=== PATIENT | male | born 1990 | race American Indian/Alaskan Native ===

== ENCOUNTER 2018-07-11 15:55 | Emergency (ER) | payer BC, OTHER ==
--- NOTE | 2018-07-11 17:08 | Emergency Department Report ---
Blank Doc - Documentation Documentation: 28 y o male presents with mid to left throbbing,aching pain 6/10 intensity, non radiating x 2 weeks cc of bilateral arm pain shooting, wosre with move,ent hx of Asthma EXAM:CTAB tenderness to palp of left chest, RRR PLAN: CXR reevaluate fast track
--- NOTE | 2018-07-11 18:21 | Emergency Department Report ---
ED Chest Pain HPI - General Chief Complaint: Chest Pain Stated Complaint: CHEST PAIN Time Seen by Provider: 07/11/18 17:02 Source: patient Mode of arrival: Ambulatory Limitations: No Limitations - History of Present Illness Initial Comments: 28-year-old male, history of asthma, presents to the ED complaining of chest pain. Pain is left-sided, intermittent for the last 2 weeks. States when the pain is present, it only lasts for a few seconds and then goes away on its own. The patient states sometimes massaging the left side of his chest helps to relieve the pain. The patient denies nausea, vomiting, diaphoresis. Denies associated leg pain or swelling. MD Complaint: chest pain -: week(s) (2) Onset: during rest Pain Location: left chest Pain Radiation: LUE Severity: mild Severity scale (0 -10): 6 Quality: sharp Consistency: intermittent, now resolved Improves With: other (massaging chest wall) Worsens With: nothing re: dyspnea. denies: nausea, vomting, diaphoresis Other Symptoms: denies: leg swelling - Related Data Previous Rx's Medication Instructions Recorded Last Taken Type Ibuprofen [Motrin 600 MG tab] 600 mg PO Q8H PRN #20 tablet 07/05/14 Unknown Rx ALBUTEROL Inhaler (OR & NICU) 2 puff IH PRN PRN #1 inha 12/31/14 Unknown Rx [ProAir HFA Inhaler] Loratadine [Claritin] 10 mg PO DAILY #30 tablet 12/31/14 Unknown Rx predniSONE [Deltasone] 40 mg PO QDAY #10 tab 12/31/14 Unknown Rx Cyclobenzaprine HCl [Flexeril 5 MG 5 mg PO TID #30 tab 02/14/15 Unknown Rx TAB] Ibuprofen [Motrin] 800 mg PO Q8HR #30 tablet 02/14/15 Unknown Rx traMADol [Ultram 50 MG tab] 50 mg PO Q6HR PRN #20 tablet 02/14/15 Unknown Rx Methocarbamol [Robaxin-750] 750 mg PO Q6HR PRN #20 tablet 07/11/18 Unknown Rx Naproxen [Naprosyn] 500 mg PO BID #20 tablet 07/11/18 Unknown Rx Allergies Allergy/AdvReac Type Severity Reaction Status Date / Time No Known Allergies Allergy Verified 07/11/18 17:02 Heart Score - HEART Score History: Slightly suspicious EKG: Normal Age: < 45 Risk factors: No known risk factors Troponin: < normal limit HEART Score: 0 - Critical Actions Critical Actions: 0-3 pts:0.9-1.7%risk of adverse cardiac event.Candidate for discharge ED Review of Systems ROS: Stated complaint: CHEST PAIN Other details as noted in HPI Comment: All other systems reviewed and negative Constitutional: denies: chills, fever Respiratory: shortness of breath Cardiovascular: chest pain Musculoskeletal: other (denies leg pain and swelling) ED Past Medical Hx - Past Medical History Hx GERD: Yes Hx Asthma: Yes - Surgical History Past Surgical History?: Yes Additional Surgical History: TONSILLECTOMY - Social History Smoking Status: Never Smoker Substance Use Type: Alcohol - Medications Home Medications: Home Medications Medication Instructions Recorded Confirmed Last Taken Type Ibuprofen [Motrin 600 MG tab] 600 mg PO Q8H PRN #20 tablet 07/05/14 Unknown Rx ALBUTEROL Inhaler (OR & NICU) 2 puff IH PRN PRN #1 inha 12/31/14 Unknown Rx [ProAir HFA Inhaler] Loratadine [Claritin] 10 mg PO DAILY #30 tablet 12/31/14 Unknown Rx predniSONE [Deltasone] 40 mg PO QDAY #10 tab 12/31/14 Unknown Rx Cyclobenzaprine HCl [Flexeril 5 MG 5 mg PO TID #30 tab 02/14/15 Unknown Rx TAB] Ibuprofen [Motrin] 800 mg PO Q8HR #30 tablet 02/14/15 Unknown Rx traMADol [Ultram 50 MG tab] 50 mg PO Q6HR PRN #20 tablet 02/14/15 Unknown Rx Methocarbamol [Robaxin-750] 750 mg PO Q6HR PRN #20 tablet 07/11/18 Unknown Rx Naproxen [Naprosyn] 500 mg PO BID #20 tablet 07/11/18 Unknown Rx ED Physical Exam - General Limitations: No Limitations General appearance: alert, in no apparent distress - Head Head exam: Present: atraumatic, normocephalic - Eye Eye exam: Present: normal appearance - ENT ENT exam: Present: mucous membranes moist - Neck Neck exam: Present: normal inspection - Respiratory Respiratory exam: Present: normal lung sounds bilaterally. Absent: respiratory distress - Cardiovascular Cardiovascular Exam: Present: regular rate, normal rhythm - GI/Abdominal GI/Abdominal exam: Present: soft. Absent: distended - Extremities Exam Extremities exam: Absent: pedal edema, calf tenderness - Neurological Exam Neurological exam: Present: alert, oriented X3 - Psychiatric Psychiatric exam: Present: normal affect, normal mood - Skin Skin exam: Present: warm, dry, intact, normal color ED Course Vital Signs 07/11/18 07/11/18 07/11/18 16:07 17:46 18:16 Temperature 98.0 F Pulse Rate 75 63 68 Respiratory 16 11 L 10 L Rate Blood Pressure 118/73 112/74 Blood Pressure 130/82 [Right] O2 Sat by Pulse 98 99 98 Oximetry 07/11/18 18:26 Temperature Pulse Rate Respiratory 18 Rate Blood Pressure Blood Pressure [Right] O2 Sat by Pulse 98 Oximetry ED Medical Decision Making - Lab Data Result diagrams: 07/11/18 18:13 07/11/18 18:13 - EKG Data -: EKG Interpreted by [facility] EKG shows normal: sinus rhythm, axis, intervals, QRS complexes, ST-T waves Rate: normal - EKG Data Interpretation: no acute changes - Radiology Data Radiology results: report reviewed, image reviewed - Medical Decision Making 28-year-old male with intermittent chest pain 2 weeks, intermittent, lasting only a few seconds at a time. Occurs at rest. EKG, troponin, d-dimer are all negative. Chest x-ray normal. Possible chest wall pain. Prescription for Naprosyn and Robaxin. Advised PCP follow-up. Return precautions given. - Differential Diagnosis chest wall pain, ACS, PE Critical care attestation.: If time is entered above; I have spent that time in minutes in the direct care of this critically ill patient, excluding procedure time. ED Disposition Clinical Impression: Chest wall pain Disposition: DC-01 TO HOME OR SELFCARE Is pt being admited?: No Condition: Stable Instructions: Chest Pain (ED), Costochondritis (ED) Prescriptions: Methocarbamol [Robaxin-750] 750 mg PO Q6HR PRN #20 tablet PRN Reason: Spasms Naproxen [Naprosyn] 500 mg PO BID #20 tablet Referrals: PRIMARY CARE, [Referring] - 3-5 Days Time of Disposition: 19:13
[2018-07-11 18:25] LABS: Basophils % (Auto) 0.5 % (0.0-1.8); Eosinophils # (Auto) 0.5 K/mm3 (0.0-0.4); Eosinophils % (Auto) 5.1 % (0.0-4.3); Hematocrit 47.5 % (35.5-45.6); Hemoglobin 15.7 gm/dl (11.8-15.2); Lymphocytes # (Auto) 2.4 K/mm3 (1.2-5.4); Mean Corpuscular HGB Conc 33 % (32-34); Mean Corpuscular Volume 91 fl (84-94); Monocytes % (Auto) 10.9 % (0.0-7.3); Platelet Count 315 K/mm3 (140-440); Red Blood Count 5.21 M/mm3 (3.65-5.03); Red Cell Distribution Width 13.4 % (13.2-15.2)
[2018-07-11 18:38] LABS: Partial Thromboplastin Time 29.2 Sec. (24.2-36.6)
[2018-07-11 18:48] LABS: BUN/Creatinine Ratio 9; Blood Urea Nitrogen 8 mg/dL (9-20); Hemolysis Index 11
--- NOTE | 2018-07-11 19:07 | XRay Report ---
FINAL REPORT PROCEDURE: Chest. TECHNIQUE: Portable AP view. HISTORY: Chest pain. COMPARISON: No prior studies are available for comparison. FINDINGS: The heart and mediastinum appear normal. The lungs are clear and well expanded. There are no pleural effusions. The soft tissues and regional skeleton are unremarkable. IMPRESSION: Negative portable chest.
[2018-07-11 19:30] VITALS: BP 118/73
== END 2018-07-11 19:34 | disposition home or self-care (01) ==
LOC: ED 15:55
DX: R07.89 Other chest pain (principal); K21.9 Gastro-esophageal reflux disease without esophagitis; J45.909 Unspecified asthma, uncomplicated
CPT/HCPCS: 36415; 71045; 80048; 84484; 85025; 85379; 85610; 85730; 93005; 93010

== ENCOUNTER 2019-04-27 22:35 | Emergency (ER) | payer OTHER ==
--- NOTE | 2019-04-27 23:19 | XRay Report ---
CHEST 1 VIEW, 04/27/2019 11:00 PM CLINICAL INFORMATION/INDICATION: Chest pain for several months COMPARISON: Chest radiograph, 07/11/2018 FINDINGS: SUPPORT DEVICES: None. HEART: Cardiac silhouette is normal in size LUNGS/PLEURA: The lungs are well expanded and appear clear ADDITIONAL FINDINGS: No additional acute findings. IMPRESSION: 1. No evidence of acute cardiopulmonary process. Signer Name: Arielle Alston MD Signed: 04/27/2019 11:14 PM Workstation Name: [id number]
--- NOTE | 2019-04-28 01:26 | Emergency Department Report ---
ED General Adult HPI - General Chief complaint: Chest Pain Stated complaint: CHEST PAIN Time Seen by Provider: 04/28/19 00:00 Source: patient Mode of arrival: Ambulatory Limitations: No Limitations - History of Present Illness Initial comments: 29-year-old male presents emergency department complaining of episodes of chest pains and palpitations the past 4-5 days. Symptoms occur sporadically and he maintains an reports being asymptomatic when they are present. With no palliative or provocative factors. 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 He reports no coughing, no congestion no hemoptysis or hematemesis nor hematochezia no fever, chills, sweats -: Gradual Location: chest Radiation: non-radiation Quality: burning Consistency: constant Improves with: none Worsens with: none Associated Symptoms: chest pain. denies: loss of appetite, nausea/vomiting, syncope, weakness Treatments Prior to Arrival: none - Related Data Previous Rx's Medication Instructions Recorded Last Taken Type Ibuprofen [Motrin 600 MG tab] 600 mg PO Q8H PRN #20 tablet 07/05/14 Unknown Rx ALBUTEROL Inhaler (OR & NICU) 2 puff IH PRN PRN #1 inha 12/31/14 Unknown Rx [ProAir HFA Inhaler] Loratadine [Claritin] 10 mg PO DAILY #30 tablet 12/31/14 Unknown Rx predniSONE [Deltasone] 40 mg PO QDAY #10 tab 12/31/14 Unknown Rx Cyclobenzaprine HCl [Flexeril 5 MG 5 mg PO TID #30 tab 02/14/15 Unknown Rx TAB] Ibuprofen [Motrin] 800 mg PO Q8HR #30 tablet 02/14/15 Unknown Rx traMADoL [Ultram 50 MG tab] 50 mg PO Q6HR PRN #20 tablet 02/14/15 Unknown Rx Methocarbamol [Robaxin-750] 750 mg PO Q6HR PRN #20 tablet 07/11/18 Unknown Rx Naproxen [Naprosyn] 500 mg PO BID #20 tablet 07/11/18 Unknown Rx Allergies Allergy/AdvReac Type Severity Reaction Status Date / Time No Known Allergies Allergy Verified 07/11/18 17:02 ED Review of Systems ROS: Stated complaint: CHEST PAIN Other details as noted in HPI Comment: All other systems reviewed and negative ED Past Medical Hx - Past Medical History Previous Medical History?: Yes Hx GERD: Yes Hx Asthma: Yes - Surgical History Past Surgical History?: Yes Additional Surgical History: TONSILLECTOMY - Social History Smoking Status: Never Smoker Substance Use Type: None - Medications Home Medications: Home Medications Medication Instructions Recorded Confirmed Last Taken Type Ibuprofen [Motrin 600 MG tab] 600 mg PO Q8H PRN #20 tablet 07/05/14 Unknown Rx ALBUTEROL Inhaler (OR & NICU) 2 puff IH PRN PRN #1 inha 12/31/14 Unknown Rx [ProAir HFA Inhaler] Loratadine [Claritin] 10 mg PO DAILY #30 tablet 12/31/14 Unknown Rx predniSONE [Deltasone] 40 mg PO QDAY #10 tab 12/31/14 Unknown Rx Cyclobenzaprine HCl [Flexeril 5 MG 5 mg PO TID #30 tab 02/14/15 Unknown Rx TAB] Ibuprofen [Motrin] 800 mg PO Q8HR #30 tablet 02/14/15 Unknown Rx traMADoL [Ultram 50 MG tab] 50 mg PO Q6HR PRN #20 tablet 02/14/15 Unknown Rx Methocarbamol [Robaxin-750] 750 mg PO Q6HR PRN #20 tablet 07/11/18 Unknown Rx Naproxen [Naprosyn] 500 mg PO BID #20 tablet 07/11/18 Unknown Rx ED Physical Exam - General Limitations: No Limitations General appearance: alert, in no apparent distress - Head Head exam: Present: atraumatic, normocephalic - Eye Eye exam: Present: normal appearance, PERRL, EOMI Pupils: Present: normal accommodation - ENT ENT exam: Present: normal exam, normal orophraynx, mucous membranes moist, TM's normal bilaterally - Neck Neck exam: Present: normal inspection, full ROM - Respiratory Respiratory exam: Present: normal lung sounds bilaterally. Absent: respiratory distress, wheezes, rales - Cardiovascular Cardiovascular Exam: Present: regular rate, normal rhythm. Absent: bradycardia, tachycardia, systolic murmur, diastolic murmur, rubs, gallop - GI/Abdominal GI/Abdominal exam: Present: soft, normal bowel sounds - Rectal Rectal exam: Present: deferred - Extremities Exam Extremities exam: Present: normal inspection, normal capillary refill - Back Exam Back exam: Present: normal inspection. Absent: CVA tenderness (R), CVA tenderness (L), paraspinal tenderness, vertebral tenderness - Neurological Exam Neurological exam: Present: alert, oriented X3, CN II-XII intact, normal gait - Psychiatric Psychiatric exam: Present: normal affect, normal mood. Absent: flat affect, manic - Skin Skin exam: Present: warm, dry, intact, normal color. Absent: rash, diaphoretic, erythema ED Course Vital Signs 04/27/19 04/28/19 22:40 01:54 Temperature 97.8 F 98.2 F Pulse Rate 75 62 Respiratory 18 18 Rate Blood Pressure 143/78 Blood Pressure 122/61 [Right] O2 Sat by Pulse 100 100 Oximetry ED Medical Decision Making - EKG Data EKG shows normal: sinus rhythm Rate: normal - EKG Data Interpretation: no acute changes - Radiology Data Radiology results: report reviewed [address] [address] XRay Report Signed Patient: BABAK FUNK MR#: [id number] : 1990 Acct:[id number] Age/Sex: 29 / M ADM Date: 04/27/19 Loc: ED Attending Dr: Ordering Physician: ED MD NIKOLAY Date of Service: 04/27/19 Procedure(s): XR chest 1V ap Accession Number(s): [id number] cc: ED MD NIKOLAY Fluoro Time In Minutes: CHEST 1 VIEW, 04/27/2019 11:00 PM CLINICAL INFORMATION/INDICATION: Chest pain for several months COMPARISON: Chest radiograph, 07/11/2018 FINDINGS: SUPPORT DEVICES: None. HEART: Cardiac silhouette is normal in size LUNGS/PLEURA: The lungs are well expanded and appear clear ADDITIONAL FINDINGS: No additional acute findings. IMPRESSION: 1. No evidence of acute cardiopulmonary process. Signer Name: Arielle Alston MD Signed: 04/27/2019 11:14 PM Workstation Name: [id number] Transcribed By: EB Dictated By: Arielle Alston MD Electronically Authenticated By: Arielle Alston MD Signed Date/Time: 04/27/192313 DD/ 12 TD/TT: - Medical Decision Making This patient presents with chest pain that is very unlikely angina or acute coronary syndrome. The emergency department evaluation has not identified any cause for suspicion that this chest pain has a cardiac etiology. Based on their history, EKG (which showed no evidence of ischemia or infarction) and imaging, in addition to the patient's physical exam, I see no evidence at this time for a malignant etiology for the patient's chest pain. There is no acute evidence for pulmonary embolus, acute myocardial infarction, pneumothorax, Boerhaeve syndrome, cardiac tamponade, thoracic artery dissection, or any other emergent cardiac, pulmonary or aortic pathology. Given the low pre-test probability for cardiac etiology of chest pain and the absence of any sign of ischemia or infarction, discharge for outpatient follow-up and further evaluation is reasonable. I have explained to the patient that even though a cardiac problem is very unlikely, follow-up and further testing is required to reduce further the already small uncertainty that exists. Other life-threatening diagnoses have been considered. The patient understands the need to return immediately if their symptoms worsen or they develop any new symptoms, and not to engage in any significant exertional activity until follow-up is obtained. Critical care attestation.: If time is entered above; I have spent that time in minutes in the direct care of this critically ill patient, excluding procedure time. ED Disposition Clinical Impression: Chest pain, Palpitations Disposition: DC-01 TO HOME OR SELFCARE Is pt being admited?: No Does the pt Need Aspirin: No Condition: Stable Instructions: Chest Pain (ED), Palpitations (ED) Referrals: TYRON HOUSTON MD [Primary Care Provider] - 3-5 Days (He should've follow-up department care doctor for further evaluation of the palpitations she may also need to follow cardiology but see her primary care doctor for further guidance)
[2019-04-28 01:55] VITALS: BP 122/61
== END 2019-04-28 01:56 | disposition home or self-care (01) ==
LOC: ED 22:35
DX: R07.89 Other chest pain (principal); K21.9 Gastro-esophageal reflux disease without esophagitis; J45.909 Unspecified asthma, uncomplicated; Z79.1 Long term (current) use of non-steroidal anti-inflammatories (NSAID); Z79.899 Other long term (current) drug therapy; Z90.89 Acquired absence of other organs
CPT/HCPCS: 71045; 93005; 93010; 99283